=== PATIENT | female | born 1970 | race Caucasian/White ===

== ENCOUNTER 2020-03-28 03:37 | Emergency (ER) | payer MEDICAID ==
[~2020-03-28] VITALS: Ht 157.5 cm; Wt 63.5 kg
--- NOTE | 2020-03-28 03:37 | NUR ---
Rusty aguilar in [facility] - 03/28/20 at 0430 by [email or web address] Placed in room 8 .
[2020-03-28 03:40] VITALS: BP_SYST 129
--- NOTE | 2020-03-28 03:48 | NUR ---
Patient to ER bed 8 to gown for evaluation. Side rails up. Report given to Dariela HARRELL.
--- NOTE | 2020-03-28 03:50 | NUR ---
ER at bedside examining patient.
--- NOTE | 2020-03-28 03:55 | NUR ---
Pt presents to the ER c/o pain L hand x 1 hour ago. Pt reports boiling water spilled on her hand while cooking mac n cheese. Pt appears to have small blisters, redness and swelling.Pt rates pain 10/. Pt has applied cold compress at home.
[2020-03-28] MEDS ORDERED: SILVER SULFADIAZINE 1%, 25 GM TOPICAL CREAM (SSD) TP ONE ×2 (04:00→04:17)
[2020-03-28] MEDS ORDERED: IBUPROFEN 600 MG TABLET PO ONE (04:00)
[2020-03-28 04:23] VITALS: BP_SYST 129
--- NOTE | 2020-03-28 04:23 | NUR ---
Patient given written and verbal discharge instructions and verbalizes understanding. ER MD discussed with patient the results and treatment provided. Patient in stable condition. ID arm band removed. Rx of SILVADENE given. Patient educated on pain management and to follow up with PMD. Opportunity for questions provided and answered. Medication side effect fact sheet provided.
== END 2020-03-28 04:28 | disposition home or self-care (01) ==
LOC: SED 03:37
DX: T23.202A Burn of second degree of left hand, unspecified site, initial encounter (principal); T31.0 Burns involving less than 10% of body surface; F17.200 Nicotine dependence, unspecified, uncomplicated; J44.9 Chronic obstructive pulmonary disease, unspecified; F11.90 Opioid use, unspecified, uncomplicated; X12.XXXA Contact with other hot fluids, initial encounter; Y93.89 Activity, other specified; Y92.89 Other specified places as the place of occurrence of the external cause; Y99.8 Other external cause status
CPT/HCPCS: 99283